=== PATIENT | female | born 1960 | race Caucasian/White ===

== ENCOUNTER 2020-07-30 20:05 | Emergency (ER) | payer OTHER, SELFPAY ==
[2020-07-30 20:10] VITALS: BP 155/74; PULSE 97; RESP 17; TEMP 38.7; O2SAT 99; BMI 20.2
[2020-07-30 20:21] VITALS: PULSE 94; O2SAT 100
[2020-07-30 20:30] VITALS: BP 153/67; PULSE 101; O2SAT 100
--- NOTE | 2020-07-30 20:41 | ED.LOWEXIN ---
HPI - Extremity Injury (Lower) General Chief Complaint: Extremity Injury, Lower Stated Complaint: states gash left gamez, thinks infected Time Seen by Provider: 07/30/20 20:35 Source: patient Mode of arrival: Ambulatory Limitations: no limitations History of Present Illness HPI Narrative: 60-year-old woman with a history of hypothyroidism and eczema ran into an end table 8 days ago and suffered a laceration to the left anterior gamez. She was seen at [facility] and was not felt to be appropriate to suture the wound. She was started on Bactrim to prevent infection and instructed to use bacitracin topically as she is allergic to Neosporin. She presents today with a fever, general malaise and developing rash. She describes no cough has not been out in exposed to multiple people, no diarrhea no vomiting but general decrease in appetite and fatigue over the last week. Related Data Home Medications Medication Instructions Recorded Confirmed levothyroxine [Synthroid] 50 mcg PO QAM #0 08/17/16 Previous Rx's Medication Instructions Recorded amoxicillin 500 mg PO Q8H #30 cap 08/17/16 meclizine 25 mg PO TIDP PRN #20 tab 08/17/16 Allergies Allergy/AdvReac Type Severity Reaction Status Date / Time codeine [CODEINE] Allergy Unknown NAUSEA Unverified 10/16/17 12:41 Review of Systems Review of Systems ROS Unobtainable: All systems reviewed & are unremarkable except as noted in HPI and below Patient History Medical History (Updated 07/30/20 @ 21:26 by Farida Patel MD) Eczema Hypothyroidism (acquired) Social History Smoking Status: Never smoker Smoking Status: Never smoker Substance Use Type: does not use Exam Narrative Exam Narrative: General: Healthy appearing, in no acute distress. Able to give a complete and coherent history. Well-nourished well-developed HEENT: Moist mucous membranes, normal sclera with reactive pupils, small urticarial lesions over the posterior neck and upper shoulders and into the lower hairline with mild cervical adenopathy in the posterior chain. Neck: No JVD, supple Respiratory: Lungs are clear to auscultation, no wheezing no rales no rhonchi. Full and symmetrical air movement Cardiac: Regular rate and rhythm no murmurs no bruits Abdomen: Soft, nontender, good bowel tones, no flank pain, she has no inguinal adenopathy Skin: Warm and dry, continued urticarial rash in intertriginous zones, under the breasts and developing over the mons pubis and into the groin with scattered lesions over the torso. Neurologic: Grossly neurologically intact with no obvious asymmetries or abnormalities Extremities: well perfused, there is a 4 mm shaver on shaped scab on the left anterior gamez that appears to be healing nicely with a 3 cm surrounding area of erythema with a slight amount of scaling and foot almost looks like satellite lesions extending out. Much more consistent with a contact dermatitis than infection. Hands with moderate eczema bilaterally Psych: Cooperative, appropriate insight and affect Initial Vital Signs Initial Vital Signs: Vital Signs Temperature 101.6 F H 07/30/20 20:10 Pulse Rate 97 H 07/30/20 20:10 Respiratory Rate 17 07/30/20 20:10 Blood Pressure 155/74 H 07/30/20 20:10 Pulse Oximetry 99 07/30/20 20:10 Course Orders Ordered: ED Orders 07/30/20 20:30 Blood Culture Stat CMP [Comprehensive Metabolic Panel] Stat Complete Blood Count AUTO DIFF Stat Lactate (Lactic Acid) Stat 07/30/20 20:35 COVID19 Stat Vital Signs Vital signs: Vital Signs - 8 hr 07/30/20 20:10 Temperature 101.6 F H Pulse Rate 97 H Respiratory Rate 17 Blood Pressure 155/74 H Pulse Oximetry 99 MDM - Extremity Injury (Lower) Medical Records Attestation: I reviewed the patient's medical records. Lab Data Attestation: I reviewed the patient's lab results. Result diagrams: 07/30/20 20:30 07/30/20 20:30 Labs: Lab Results 07/30/20 07/30/20 07/30/20 Range/Units 20:30 20:30 20:30 WBC 4.8 (4.5-11.0) X10^3/uL RBC 4.51 (4.0-5.2) X10^6/uL Hgb 14.0 (12.0-16.0) g/dL Hct 41.1 (36-46) % MCV 91.1 (80-100) fL MCH 30.9 (26-34) PG MCHC 33.9 (30-36) % RDW 12.2 (11.6-14.8) % Plt Count 231 (150-400) X10^3/uL Neut % (Auto) 76.5 H (50-75) % Lymph % (Auto) 9.1 L (25-40) % [place]oula % (Auto) 9.8 (3-14) % Eos % (Auto) 3.3 (2-4) % Baso % (Auto) 1.3 (0-2) % Neut # (Auto) 3700 (2790-9622) /uL Lymph # (Auto) 400 L (8504-7204) /uL [place] # (Auto) 500 (0-900) /uL Eos # (Auto) 200 (0-450) /uL Baso # (Auto) 100 (0-100) /uL Sodium 128 L (137-145) mmol/L Potassium 4.0 (3.4-5.1) mmol/L Chloride 99 (98-107) mmol/L Carbon Dioxide 20 L (22-32) mmol/L BUN 11 (7-17) mg/dL Creatinine 0.95 (0.52-1.04) mg/dL Estimated GFR > 60.0 (>60) mL/min BUN/Creatinine Ratio 11.6 (6-22) Glucose 102 H (70-100) mg/dL Lactate 1.0 (0.7-2.1) mmol/L Calcium 8.8 (8.4-10.2) mg/dL Total Bilirubin 0.3 (0.2-1.3) mg/dL AST 34 (14-36) IU/L ALT 17 (<35) IU/L Alkaline Phosphatase 118 (38-126) U/L Total Protein 7.9 (6.3-8.2) g/dL Albumin 4.6 (3.5-5.0) g/dL Globulin 3.3 (1.7-4.1) g/dL Albumin/Globulin Ratio 1.4 (1.0-2.8) SARS-CoV-2 (PCR) (Negative) 07/30/20 Range/Units 20:35 WBC (4.5-11.0) X10^3/uL RBC (4.0-5.2) X10^6/uL Hgb (12.0-16.0) g/dL Hct (36-46) % MCV (80-100) fL MCH (26-34) PG MCHC (30-36) % RDW (11.6-14.8) % Plt Count (150-400) X10^3/uL Neut % (Auto) (50-75) % Lymph % (Auto) (25-40) % [place]oul[place] % (Auto) (3-14) % Eos % (Auto) (2-4) % Baso % (Auto) (0-2) % Neut # (Auto) (5671-9815) /uL Lymph # (Auto) (6358-7059) /uL [place] # (Auto) (0-900) /uL Eos # (Auto) (0-450) /uL Baso # (Auto) (0-100) /uL Sodium (137-145) mmol/L Potassium (3.4-5.1) mmol/L Chloride (98-107) mmol/L Carbon Dioxide (22-32) mmol/L BUN (7-17) mg/dL Creatinine (0.52-1.04) mg/dL Estimated GFR (>60) mL/min BUN/Creatinine Ratio (6-22) Glucose (70-100) mg/dL Lactate (0.7-2.1) mmol/L Calcium (8.4-10.2) mg/dL Total Bilirubin (0.2-1.3) mg/dL AST (14-36) IU/L ALT (<35) IU/L Alkaline Phosphatase (38-126) U/L Total Protein (6.3-8.2) g/dL Albumin (3.5-5.0) g/dL Globulin (1.7-4.1) g/dL Albumin/Globulin Ratio (1.0-2.8) SARS-CoV-2 (PCR) Negative (Negative) MDM Narrative Medical decision making narrative: 60-year-old woman presents with an interesting constellation of symptoms after a left gamez wound treated with Bactrim. Skin exam looks like eczema with drug eruption and superficial contact dermatitis around the healing wound on the anterior gamez. She also has the fever, general malaise and her COVID test is negative. White count is normal as is lactic acid do not suspect that the left lower extremity wound is infected or sepsis. She is also found to be slightly hyponatremic and does note that she has been drinking extra water to help while she has been taking antibiotics. At this time she is completely hemodynamically stable, no clinical symptoms of hyponatremia and minimally pruritic rash. Will presume that this is a drug eruption secondary to the sulfa antibiotic with superficial dermatitis due to bacitracin around the healing wound. No evidence of UTI, intra-abdominal infection, pneumonia to explain the fever. She does have a follow-up appointment with her primary care physician scheduled for 3 days. Have given her copies of all of her blood work so that her primary care physician can follow up on the fever and the hyponatremia. Have instructed her return to the emergency department should symptoms worsen. Discharge Plan Departure Patient Disposition: Home Clinical Impression: Contact dermatitis and eczema, Drug eruption Instructions: DI for Adverse Drug Reaction -- Allergic Activity Restrictions/Additional Instructions: Thank you for coming in today. I do not have a single diagnosis to explain all of your symptoms today. Your left gamez wound appears to be healing nicely. The redness around that I believe is an allergic reaction to the bacitracin. Please stop the Bactrim antibiotic as well as the topical antibiotic. The rash that your noticing over your skin, is very likely an acute allergic reaction to the Bactrim. This may explain the fever that you have and may also explain the low-salt level we noticed in your blood. It is very important that you follow-up with your primary care physician to make sure that each of these symptoms is returning to normal and there is not an alternate diagnosis that we still need to find. Your COVID test was negative today I have given you copies of your recent blood work, please share with your primary care physician with your appointment in 3 days. If you find that you are getting worse, please feel free to return to the emergency department Prescriptions: No Action levothyroxine [Synthroid] 50 MCG tablet 50 mcg PO QAM Qty: 0 RF: 0 amoxicillin 500 MG capsule 500 mg PO Q8H Qty: 30 RF: 0 meclizine 25 MG tablet,chewable 25 mg PO TIDP PRNQty: 20 RF: 0 Referrals: Heather Carrasco ARNP [Primary Care Provider] -
[2020-07-30 20:52] LABS: Add Manual Diff / Slide Review NO; Basophils Absolute Auto 100 /uL (0-100); Basophils Percent Auto 1.3 % (0-2); Eosinophils Absolute Auto 200 /uL (0-450); Eosinophils Percent Auto 3.3 % (2-4); Hematocrit 41.1 % (36-46); Lymphocytes Absolute Auto 400 /uL (1100-4500); Lymphocytes Percent Auto 9.1 % (25-40); Mean Corpuscular HGB Conc 33.9 % (30-36); Mean Corpuscular Hemoglobin 30.9 PG (26-34); Mean Corpuscular Volume 91.1 fL (80-100); Monocytes Absolute Auto 500 /uL (0-900); Monocytes Percent Auto 9.8 % (3-14); Neutrophils Absolute Auto 3700 /uL (1500-7000); Neutrophils Percent Auto 76.5 % (50-75); Platelet Count 231 X10^3/uL (150-400); Red Blood Cell Count 4.51 X10^6/uL (4.0-5.2); Red Cell Distribution Width 12.2 % (11.6-14.8); White Blood Cell Count 4.8 X10^3/uL (4.5-11.0)
[2020-07-30 21:00] VITALS: BP 147/63; PULSE 96; O2SAT 100
[2020-07-30 21:01] LABS: Alanine Aminotransferase 17 IU/L (<35); Albumin 4.6 g/dL (3.5-5.0); Albumin Globulin Ratio 1.4 (1.0-2.8); Alkaline Phosphatase 118 U/L (38-126); Aspartate Aminotransferase 34 IU/L (14-36); BUN Creatinine Ratio 11.6 (6-22); Bilirubin Total 0.3 mg/dL (0.2-1.3); Blood Urea Nitrogen 11 mg/dL (7-17); Calcium 8.8 mg/dL (8.4-10.2); Carbon Dioxide 20 mmol/L (22-32); Chloride 99 mmol/L (98-107); Estimated Glomerular Filt Rate > 60.0 mL/min (>60); Globulin 3.3 g/dL (1.7-4.1); Glucose 102 mg/dL (70-100); HEMOLYSIS < 15 (0-50); Sodium 128 mmol/L (137-145); Total Protein 7.9 g/dL (6.3-8.2)
[2020-07-30 21:08] LABS: COVID19 -Nasal RAPID Negative (Negative)
[2020-07-30 21:30] VITALS: BP 128/66; PULSE 83; O2SAT 99
== END 2020-07-30 21:57 | disposition home or self-care (01) ==
PROVIDERS: Emergency Provider Emergency Medicine; Family Provider Nurse Practitioner Family; PCP Nurse Practitioner Family
DX: L27.0 Generalized skin eruption due to drugs and medicaments taken internally (principal); L25.9 Unspecified contact dermatitis, unspecified cause; E87.1 Hypo-osmolality and hyponatremia; R50.9 Fever, unspecified; Z20.822 Contact with and (suspected) exposure to COVID-19
CPT/HCPCS: 36415; 80053; 83605; 85025; 87040; 87635; 99281; 99283; C9803